=== PATIENT | female | born 1960 | race Caucasian/White ===

== ENCOUNTER → 2020-01-25 | Day surgery (SDC) | payer OTHER ==
[2020-01-20 10:20] LABS: BASOPHILS # (AUTO) 0.1 (0.0-0.1); BASOPHILS % 0.9 % (0.0-1.0); EOSINOPHILS # (AUTO) 0.2 (0.0-0.4); EOSINOPHILS % 3.4 % (0.0-6.0); HEMATOCRIT 39.8 % (34.2-44.1); HEMOGLOBIN 13.4 g/dL (12.0-16.0); LYMPHOCYTES # (AUTO) 2.3 (1.0-3.2); LYMPHOCYTES % 40.9 % (18.0-39.1); MEAN CORPUSCULAR HEMOGLOBIN 30.2 pg (28-32); MEAN CORPUSCULAR HGB CONC 33.7 g/dL (31-35); MEAN CORPUSCULAR VOLUME 89.6 fL (81-99); MONOCYTES # (AUTO) 0.6 (0.2-0.8); MONOCYTES % 9.9 % (4.4-11.3); NEUTROPHILS # (AUTO) 2.5 (2.1-6.9); NEUTROPHILS % 44.7 % (38.7-80.0); PLATELET COUNT 249 x10e3/uL (140-360); RED BLOOD COUNT 4.44 x10e6/uL (3.6-5.1); RED CELL DISTRIBUTION WIDTH 12.6 % (11.7-14.4)
[~2020-01-25] MED LIST: ANASTROZOLE1 MG PO; ASPIRIN325 MG PO; CITRACAL + D M1 EACH PO; FENTANYL CITRATE/PF 100MCG/2 ML INJ ONE; FISH OIL 1,0001 EAC2 PO; HYOSCYAMINE 0.125 MG TAB ONE; LIDOCAINE HCL 2% LOCAL INJ 5 ML SDV VIAL INJ ONE; MEDROL4 MG/DOSE-; METOPROLOL TART25 MG PO; MIDAZOLAM HCL 2 MG/2 ML VIAL ONE; POTASSIUM CHLO20 ME1 PO; PROPOFOL IV EMULSION 10 MG/ML 20 ML VIAL ONE; SIMVASTATIN20 MG PO; SYNTHROID75 MCG PO; VITAMIN D350 MCG PO
[2020-01-25 15:19] LABS: WBC,FECAL (FECAL LACTOFERRIN) NEGATIVE (NEGATIVE)
[2020-01-25 15:20] VITALS: BP 129/69
--- NOTE | 2020-01-25 17:15 | Operative Report ---
DATE OF PROCEDURE: 01/25/2020 SURGEON: Greg Knight MD PROCEDURE: Colonoscopy with polypectomy and biopsies INDICATIONS FOR COLONOSCOPY: Surveillance colonoscopy, personal history of colon polyps, history of intermittent diarrhea. MEDICATIONS: The patient was done under MAC, please see anesthesiologist's note. PROCEDURE IN DETAIL: With the patient in left lateral decubitus position, the flexible fiberoptic Olympus colonoscope was inserted into the rectum with ease and advanced all the way to the cecum. Mucosa overlying the cecum appeared to be within normal limits. The ileocecal valve was intubated. The scope was advanced into the terminal ileum. Biopsies were obtained. The scope was then withdrawn back into the colon. It was then withdrawn slowly, mucosa overlying the ascending, transverse, descending, sigmoid, and rectum revealed some patchy mild inflammatory changes and multiple random biopsies were obtained. Some diverticular disease was noted in the transverse colon. One polyp was hot snared from the descending colon. One polyp was hot snared from the sigmoid colon. The scope was then retroflexed into the distal rectum and small internal hemorrhoids were noted, none of which was actively bleeding. Some hypertrophied anal papillae were also noted. The scope was then straightened out, it was subsequently withdrawn after securing an adequate stool specimen, that was sent for the appropriate stool studies. The patient tolerated the procedure well. IMPRESSION: 1. Colitis, mild, patchy random biopsies obtained. 2. Diverticulosis. 3. Descending colon polyp, hot snared. 4. Sigmoid colon polyp, hot snared. 5. Proctitis, mild. 6. Internal hemorrhoids, none actively bleeding. 7. Hypertrophied anal papillae. PLAN: 1. Follow up histology. 2. Follow up stool studies. 3. Initiate Bentyl 20 mg one p.o. t.i.d. 4. Check IBD panel, CRP, and sedimentation rate. 5. The patient might benefit from a followup colonoscopy in 3 years. Greg Knight MD [facility] [place][id number] cc: Ruben Harrison DO
[2020-01-26 14:34] LABS: C DIFFICILE TOXIN A&B AMP PROB **POSITIVE** (NEGATIVE)
== END | disposition home or self-care (01) ==
LOC: OR 10:06
PROVIDERS: ATTEND Internal Medicine Gastroenterology
DX: Z09 Encounter for follow-up examination after completed treatment for conditions other than malignant neoplasm (principal); K63.5 Polyp of colon; K52.9 Noninfective gastroenteritis and colitis, unspecified; K59.00 Constipation, unspecified; K57.30 Diverticulosis of large intestine without perforation or abscess without bleeding; K62.89 Other specified diseases of anus and rectum; K64.8 Other hemorrhoids; G47.33 Obstructive sleep apnea (adult) (pediatric); E78.5 Hyperlipidemia, unspecified; I10 Essential (primary) hypertension; E03.9 Hypothyroidism, unspecified; B18.8 Other chronic viral hepatitis; Z88.1 Allergy status to other antibiotic agents; Z91.010 Allergy to peanuts; Z01.810 Encounter for preprocedural cardiovascular examination; Z01.812 Encounter for preprocedural laboratory examination; Z11.59 Encounter for screening for other viral diseases; Z79.82 Long term (current) use of aspirin; Z68.25 Body mass index [BMI] 25.0-25.9, adult; Z85.3 Personal history of malignant neoplasm of breast; Z87.891 Personal history of nicotine dependence
CPT/HCPCS: 36415 ×2; 45380; 45385; 83630; 83993; 85025; 85651; 86140; 86256; 86671; 87045; 87177; 87328; 87493; 93005; J2001; J2250; J2704; J3010; U0002

== ENCOUNTER 2024-04-07 20:30 | Inpatient (IN) | payer OTHER ==
[~2024-04-07] VITALS: Ht 172.7 cm; Wt 70.8 kg
[~2024-04-07 20:30] MED LIST changes: -FENTANYL CITRATE/PF 100MCG/2 ML INJ ONE; -HYOSCYAMINE 0.125 MG TAB ONE; -LIDOCAINE HCL 2% LOCAL INJ 5 ML SDV VIAL INJ ONE; -MIDAZOLAM HCL 2 MG/2 ML VIAL ONE; -PROPOFOL IV EMULSION 10 MG/ML 20 ML VIAL ONE
[2024-04-07 20:39] VITALS: TEMP 97.9
[2024-04-07] MEDS ORDERED: KETOROLAC TROMETHAMINE 30 MG/ML VIAL ONE (20:56)
[2024-04-07] MEDS: ONDANSETRON HCL INJ 2MG/ML 2ML 2 MG/ML VIAL IV STA (21:01)
[2024-04-07] MEDS: KETOROLAC TROMETHAMINE 30 MG/ML VIAL IV STA (21:01)
[2024-04-07 21:03] LABS: BASOPHILS # (AUTO) 0.1 (0.0-0.1); BASOPHILS % 0.6 % (0.0-1.0); EOSINOPHILS # (AUTO) 0.2 (0.0-0.4); EOSINOPHILS % 1.5 % (0.0-6.0); HEMATOCRIT 43.1 % (34.2-44.1); HEMOGLOBIN 13.8 g/dL (12.0-16.0); LYMPHOCYTES # (AUTO) 1.1 (1.0-3.2); LYMPHOCYTES % 9.5 % (18.0-39.1); MEAN CORPUSCULAR HEMOGLOBIN 31.6 pg (28-32); MEAN CORPUSCULAR VOLUME 98.6 fL (81-99); MONOCYTES # (AUTO) 0.6 (0.2-0.8); MONOCYTES % 4.9 % (4.4-11.3); NEUTROPHILS # (AUTO) 9.6 (2.1-6.9); NEUTROPHILS % 82.9 % (38.7-80.0); PLATELET COUNT 189 x10e3/uL (140-360); RED BLOOD COUNT 4.37 x10e6/uL (3.6-5.1); WHITE BLOOD COUNT 11.53 x10e3/uL (4.8-10.8)
[2024-04-07 21:26] LABS: ALBUMIN 4.1 g/dL (3.5-5.0); ALBUMIN/GLOBULIN RATIO 1.7 (0.8-2.0); ANION GAP 15.8 mmol/L (8-16); BILIRUBIN,TOTAL 0.7 mg/dL (0.2-1.2); CALCIUM 9.9 mg/dL (8.4-10.2); CREATININE, SERUM 1.45 mg/dL (0.57-1.11); POTASSIUM 4.8 mmol/L (3.5-5.1); TOTAL PROTEIN 6.5 g/dL (6.5-8.1)
[2024-04-07 21:33] LABS: CLARITY,URINE CLEAR (CLEAR); COLOR,URINE YELLOW (YELLOW)
[2024-04-07 21:38] LABS: BILIRUBIN,URINE NEGATIVE (NEGATIVE); GLUCOSE, URINE 1+ (NEGATIVE); KETONES,URINE NEGATIVE (NEGATIVE); LEUKOCYTE ESTERASE ,URINE NEGATIVE (NEGATIVE); NITRITE,URINE NEGATIVE (NEGATIVE); PH,URINE 5.5 (5 - 7); PROTEIN,URINE DIPSTICK NEGATIVE (NEGATIVE); URINE UROBILINOGEN 0.2 mg/dL (0.2 - 1)
[2024-04-07 21:43] LABS: BACTERIA,URINE MANY /HPF; EPITHELIAL CELLS,URINE FEW /LPF; RBC,URINE 0-5 /HPF (0-5)
[2024-04-07] MEDS ORDERED: HYDRALAZINE HCL 20 MG/ML VIAL IV PRN (22:30)
[2024-04-07] MEDS: SODIUM CHLORIDE 0.9% 1000ML 1,000 ML IV SCH (22:46)
[2024-04-07] MEDS: Morphine 4mg INJECTION 4 MG/ML INJ IV ONE (22:47)
[2024-04-07 23:00] VITALS: PULSE 66; RESP 16; O2SAT 97
[2024-04-07 23:15] VITALS: PULSE 59; RESP 16
[2024-04-08] VITALS (12 sets, daily range): BP systolic 132–172; BP diastolic 68–81; PULSE 64–85; RESP 16–20; TEMP 97.5–98.8; O2SAT 93–100
[2024-04-08] MEDS ORDERED: EFFEXOR XR150 MG PO (00:34)
[2024-04-08] MEDS ORDERED: ACETAMINOPHEN 325 MG TAB PO PRN (01:30)
[2024-04-08] MEDS ORDERED: TRAMADOL HCL 50 MG TAB PO PRN (01:30)
[2024-04-08] MEDS ORDERED: GUAIFENESIN/DEXTROMETHORPHAN LIQD 5 ML UDC PO PRN (01:30)
[2024-04-08] MEDS ORDERED: ALBUTEROL SULF 0.083% NEB SOLN 3 ML NEB NEB PRN (01:30)
[2024-04-08] MEDS ORDERED: MAGNESIUM/ALUMINUM/SIMETHICONE 30 ML UDC PO PRN (01:30)
[2024-04-08] MEDS ORDERED: MELATONIN 3 MG TAB PO PRN (01:30)
[2024-04-08] MEDS: Morphine 4mg INJECTION 4 MG/ML INJ IV PRN (04:34)
[2024-04-08 05:46] LABS: BASOPHILS % 0.3 % (0.0-1.0); EOSINOPHILS % 0.3 % (0.0-6.0); HEMATOCRIT 34.4 % (34.2-44.1); HEMOGLOBIN 11.6 g/dL (12.0-16.0); LYMPHOCYTES # (AUTO) 1.4 (1.0-3.2); LYMPHOCYTES % 19.1 % (18.0-39.1); MEAN CORPUSCULAR HEMOGLOBIN 31.6 pg (28-32); MEAN CORPUSCULAR HGB CONC 33.7 g/dL (31-35); MEAN CORPUSCULAR VOLUME 93.7 fL (81-99); MONOCYTES # (AUTO) 0.5 (0.2-0.8); MONOCYTES % 6.8 % (4.4-11.3); NEUTROPHILS # (AUTO) 5.5 (2.1-6.9); NEUTROPHILS % 73.1 % (38.7-80.0); PLATELET COUNT 165 x10e3/uL (140-360); RED BLOOD COUNT 3.67 x10e6/uL (3.6-5.1); RED CELL DISTRIBUTION WIDTH 12.1 % (11.7-14.4); WHITE BLOOD COUNT 7.47 x10e3/uL (4.8-10.8)
[2024-04-08 06:15] LABS: ANION GAP 11.6 mmol/L (8-16); CALCIUM 8.5 mg/dL (8.4-10.2); CREATININE, SERUM 1.36 mg/dL (0.57-1.11); POTASSIUM 4.6 mmol/L (3.5-5.1)
[2024-04-08] MEDS: VENLAFAXINE HCL 75 MG CAPCR PO SCH (09:00)
[2024-04-08] MEDS: ONDANSETRON HCL INJ 2MG/ML 2ML 2 MG/ML VIAL IV PRN (09:51)
[2024-04-08] MEDS ORDERED: LIDOCAINE HCL 2% LOCAL INJ 5 ML SDV VIAL INJ ONE (13:16)
[2024-04-08] MEDS ORDERED: FENTANYL CITRATE/PF 100MCG/2 ML INJ ONE (13:17)
[2024-04-08] MEDS ORDERED: SEVOFLURANE INHAL SOLN 250 ML PEN BTL ONE (13:17)
[2024-04-08] MEDS ORDERED: PROPOFOL IV EMULSION 10 MG/ML 20 ML VIAL ONE (13:17)
[2024-04-08] MEDS ORDERED: ACETAMINOPHEN 1000 MG/100 ML 100 ML IV ONE (13:17)
[2024-04-08] MEDS ORDERED: DEXAMETHASONE SOD PHOS INJ 4 MG/ML SDV ONE (13:50)
[2024-04-08] MEDS ORDERED: FAMOTIDINE 20 MG/2 ML VIAL IV ONE (13:50)
[2024-04-08] MEDS ORDERED: ONDANSETRON HCL INJ 2MG/ML 2ML 2 MG/ML VIAL ONE (13:50)
[2024-04-08] MEDS ORDERED: EPHEDRINE SULFATE INJ 50 MG/ML VIAL ONE (14:03)
[2024-04-08] MEDS ORDERED: ACETAMINOPHEN/CODEINE 300MG - 30MG TAB PO PRN (15:00)
[2024-04-08] MEDS ORDERED: PHENAZOPYRIDINE HCL 100 MG TAB PO PRN (15:00)
[2024-04-08] MEDS: PROMETHAZINE 12.5MG/ NACL 0.9% 12.5 MG/50 ML BAG IV ONE (17:10)
[2024-04-08] MEDS ORDERED: PROMETHAZINE 12.5MG/ NACL 0.9% 12.5 MG/50 ML BAG IV PRN (19:15)
[2024-04-08] MEDS: LEVOTHYROXINE SODIUM 75 MCG TAB PO SCH (20:45)
[2024-04-08] MEDS: SIMVASTATIN 20 MG TAB PO SCH (20:47)
[2024-04-08] MEDS: METOPROLOL TARTRATE 25 MG TAB PO SCH (20:48)
[2024-04-09] VITALS (8 sets, daily range): BP systolic 122–172; BP diastolic 66–81; PULSE 62–79; RESP 16–20; TEMP 98.6–99.3; O2SAT 94–99
[2024-04-09 04:53] LABS: BASOPHILS % 0.2 % (0.0-1.0); HEMATOCRIT 33.9 % (34.2-44.1); HEMOGLOBIN 10.7 g/dL (12.0-16.0); LYMPHOCYTES # (AUTO) 0.6 (1.0-3.2); LYMPHOCYTES % 10.6 % (18.0-39.1); MEAN CORPUSCULAR HEMOGLOBIN 31.8 pg (28-32); MEAN CORPUSCULAR HGB CONC 31.6 g/dL (31-35); MEAN CORPUSCULAR VOLUME 100.6 fL (81-99); MONOCYTES # (AUTO) 0.3 (0.2-0.8); MONOCYTES % 4.9 % (4.4-11.3); NEUTROPHILS # (AUTO) 4.5 (2.1-6.9); NEUTROPHILS % 83.7 % (38.7-80.0); PLATELET COUNT 155 x10e3/uL (140-360); RED BLOOD COUNT 3.37 x10e6/uL (3.6-5.1); RED CELL DISTRIBUTION WIDTH 12.5 % (11.7-14.4); WHITE BLOOD COUNT 5.36 x10e3/uL (4.8-10.8)
[2024-04-09 05:17] LABS: ANION GAP 13.3 mmol/L (8-16); CALCIUM 8.9 mg/dL (8.4-10.2); CREATININE, SERUM 1.43 mg/dL (0.57-1.11); POTASSIUM 4.3 mmol/L (3.5-5.1)
[2024-04-09] MEDS: SOLIFENACIN SUCCINATE 5 MG TAB PO SCH (08:16)
[2024-04-10] VITALS: BP 142/76; PULSE 71; RESP 18; TEMP 98.6; O2SAT 94
[2024-04-10 04:00] VITALS: BP 164/90; PULSE 73; RESP 18; TEMP 98.3; O2SAT 97
[2024-04-10 06:31] VITALS: PULSE 82; RESP 20; O2SAT 96
[2024-04-10] MEDS: DOCUSATE SODIUM 100 MG CAP PO PRN (08:25)
[2024-04-10 08:34] VITALS: BP 155/88; PULSE 72; RESP 20; TEMP 98.1; O2SAT 97
[2024-04-10] MEDS ORDERED: TYLENOL 3 PO (11:01)
[2024-04-10] MEDS ORDERED: CEFTIN PO (11:02)
[2024-04-10] MEDS ORDERED: VESICARE5 MG PO (11:02)
== END 2024-04-10 13:10 | disposition home or self-care (01) | DRG 661 ==
LOC: ER 20:35 → ERHOLD 22:29 → MED/SURG 23:39
PROVIDERS: ADMIT Internal Medicine; ATTEND Internal Medicine
PROC: 0T768DZ Dilation of Right Ureter with Intraluminal Device, Via Natural or Artificial Opening Endoscopic (ICD-10-PCS; 2024-04-08)
PROC: 0UJH7ZZ Inspection of Vagina and Cul-de-sac, Via Natural or Artificial Opening (ICD-10-PCS; 2024-04-08)
PROC: BT1D1ZZ Fluoroscopy of Right Kidney, Ureter and Bladder using Low Osmolar Contrast (ICD-10-PCS; principal; 2024-04-08 13:49)
DX: N13.2 Hydronephrosis with renal and ureteral calculous obstruction (principal); N17.9 Acute kidney failure, unspecified; I10 Essential (primary) hypertension; I25.10 Atherosclerotic heart disease of native coronary artery without angina pectoris; R31.0 Gross hematuria; N23 Unspecified renal colic; J45.909 Unspecified asthma, uncomplicated; E78.00 Pure hypercholesterolemia, unspecified; Z79.82 Long term (current) use of aspirin; Z85.3 Personal history of malignant neoplasm of breast; Z90.13 Acquired absence of bilateral breasts and nipples; Z95.5 Presence of coronary angioplasty implant and graft; Z88.1 Allergy status to other antibiotic agents; Z91.010 Allergy to peanuts; Z87.891 Personal history of nicotine dependence; N36.41 Hypermobility of urethra; N81.10 Cystocele, unspecified; N81.6 Rectocele; N95.2 Postmenopausal atrophic vaginitis
CPT/HCPCS: 36415; 74176; 74420; 80048; 80053; 81001; 83690; 85025; 87086; 94799; 99284; C1758; C1769; C2617; J0696; J1100; J1885; J2003; J2270; J2405; J2550; J7030

== ENCOUNTER 2024-05-01 20:49 | Inpatient (IN) | payer OTHER ==
[~2024-05-01] VITALS: Ht 172.7 cm; Wt 70.8 kg
[~2024-05-01 20:49] MED LIST changes: +CEFTIN PO; +EFFEXOR XR150 MG PO; +TYLENOL 3 PO; +VENLAFAXINE HCL75 MG PO; +VESICARE5 MG PO
[2024-05-01 21:58] LABS: BASOPHILS % 0.5 % (0.0-1.0); EOSINOPHILS # (AUTO) 0.3 (0.0-0.4); EOSINOPHILS % 5.1 % (0.0-6.0); HEMATOCRIT 41.4 % (34.2-44.1); HEMOGLOBIN 13.8 g/dL (12.0-16.0); LYMPHOCYTES # (AUTO) 1.8 (1.0-3.2); LYMPHOCYTES % 27.5 % (18.0-39.1); MEAN CORPUSCULAR HEMOGLOBIN 31.6 pg (28-32); MEAN CORPUSCULAR HGB CONC 33.3 g/dL (31-35); MEAN CORPUSCULAR VOLUME 94.7 fL (81-99); MONOCYTES # (AUTO) 0.4 (0.2-0.8); NEUTROPHILS # (AUTO) 3.9 (2.1-6.9); NEUTROPHILS % 60.6 % (38.7-80.0); PLATELET COUNT 210 x10e3/uL (140-360); RED BLOOD COUNT 4.37 x10e6/uL (3.6-5.1); RED CELL DISTRIBUTION WIDTH 11.9 % (11.7-14.4); WHITE BLOOD COUNT 6.47 x10e3/uL (4.8-10.8)
[2024-05-01 22:14] LABS: COLOR,URINE BROWN (YELLOW)
[2024-05-01 22:15] LABS: BILIRUBIN,URINE 1+ (NEGATIVE); CLARITY,URINE CLOUDY (CLEAR); GLUCOSE, URINE NEGATIVE (NEGATIVE)
[2024-05-01 22:16] LABS: KETONES,URINE NEGATIVE (NEGATIVE); PH,URINE 6 (5 - 7); PROTEIN,URINE DIPSTICK 3+ (NEGATIVE)
[2024-05-01 22:16] LABS: ALBUMIN/GLOBULIN RATIO 1.4 (0.8-2.0); BILIRUBIN,TOTAL 0.8 mg/dL (0.2-1.2); CALCIUM 10.1 mg/dL (8.4-10.2); CREATININE, SERUM 1.52 mg/dL (0.57-1.11); TOTAL PROTEIN 6.8 g/dL (6.5-8.1)
[2024-05-01 22:17] LABS: LEUKOCYTE ESTERASE ,URINE TRACE (NEGATIVE); NITRITE,URINE NEGATIVE (NEGATIVE); RBC,URINE >50 /HPF (0-5); URINE UROBILINOGEN 0.2 mg/dL (0.2 - 1); WBC,URINE (MAN) 21-50 /HPF (0-5)
[2024-05-01 22:18] LABS: AMORPHOUS SEDIMENT,URINE MANY (FEW); BACTERIA,URINE MANY /HPF; EPITHELIAL CELLS,URINE FEW /LPF; MUCUS,URINE MANY (RARE)
[2024-05-02] VITALS (7 sets, daily range): BP systolic 129–177; BP diastolic 68–82; PULSE 71–97; RESP 16–20; TEMP 97.7–98; O2SAT 94–100
[2024-05-02] MEDS: SODIUM CHLORIDE 0.9% 1000ML 1,000 ML IV SCH (00:56)
[2024-05-02] MEDS: Morphine 2mg Syringe 2 MG/ML SYR IV PRN (01:02)
[2024-05-02] MEDS: ONDANSETRON HCL INJ 2MG/ML 2ML 2 MG/ML VIAL IV PRN (01:02)
[2024-05-02 06:34] LABS: BASOPHILS % 0.7 % (0.0-1.0); EOSINOPHILS # (AUTO) 0.3 (0.0-0.4); EOSINOPHILS % 5.2 % (0.0-6.0); HEMATOCRIT 37.5 % (34.2-44.1); HEMOGLOBIN 11.7 g/dL (12.0-16.0); LYMPHOCYTES % 36.6 % (18.0-39.1); MEAN CORPUSCULAR HEMOGLOBIN 31.6 pg (28-32); MEAN CORPUSCULAR HGB CONC 31.2 g/dL (31-35); MEAN CORPUSCULAR VOLUME 101.4 fL (81-99); MONOCYTES # (AUTO) 0.5 (0.2-0.8); MONOCYTES % 9.7 % (4.4-11.3); NEUTROPHILS # (AUTO) 2.6 (2.1-6.9); NEUTROPHILS % 47.4 % (38.7-80.0); PLATELET COUNT 173 x10e3/uL (140-360); WHITE BLOOD COUNT 5.57 x10e3/uL (4.8-10.8)
[2024-05-02 06:58] LABS: ALBUMIN 3.5 g/dL (3.5-5.0); ALBUMIN/GLOBULIN RATIO 1.6 (0.8-2.0); ANION GAP 12.8 mmol/L (8-16); BILIRUBIN,TOTAL 0.5 mg/dL (0.2-1.2); CREATININE, SERUM 1.1 mg/dL (0.57-1.11); POTASSIUM 3.8 mmol/L (3.5-5.1); TOTAL PROTEIN 5.7 g/dL (6.5-8.1)
[2024-05-02] MEDS ORDERED: CEFTRIAXONE 1 GM VIAL IM STA (07:38)
[2024-05-02] MEDS ORDERED: GENTAMICIN 120MG/NS 100ML 100 ML IV STA (07:45)
[2024-05-02] MEDS ORDERED: GENTAMICIN 120MG/NS 100ML 100 ML ONE (08:09)
[2024-05-02] MEDS ORDERED: CEFTRIAXONE 1 GM VIAL ONE (08:09)
[2024-05-02] MEDS ORDERED: PROPOFOL IV EMULSION 10 MG/ML 20 ML VIAL ONE (08:21)
[2024-05-02] MEDS ORDERED: DEXAMETHASONE SOD PHOS INJ 4 MG/ML SDV ONE (08:22)
[2024-05-02] MEDS ORDERED: LIDOCAINE HCL 2% LOCAL INJ 5 ML SDV VIAL INJ ONE (08:22)
[2024-05-02] MEDS ORDERED: ONDANSETRON HCL INJ 2MG/ML 2ML 2 MG/ML VIAL ONE (08:22)
[2024-05-02] MEDS ORDERED: FENTANYL CITRATE/PF 100MCG/2 ML INJ ONE (08:23)
[2024-05-02] MEDS ORDERED: MIDAZOLAM HCL 2 MG/2 ML VIAL ONE (08:23)
[2024-05-02] MEDS ORDERED: PHENYLEPHRINE HCL 1% 10 MG/ML VIAL ONE ×2 (08:24→08:48)
[2024-05-02] MEDS ORDERED: ACETAMINOPHEN 1000 MG/100 ML 100 ML IV ONE (08:45)
[2024-05-02] MEDS ORDERED: METOCLOPRAMIDE HCL 10 MG/2ML VIAL ONE (08:45)
[2024-05-02] MEDS ORDERED: FAMOTIDINE 20 MG/2 ML VIAL IV ONE (08:45)
[2024-05-02] MEDS ORDERED: EPHEDRINE SULFATE INJ 50 MG/ML VIAL ONE (08:56)
[2024-05-02] MEDS ORDERED: HEPARIN SOD/DEXTROSE 5% 25000 UNIT/250 ML BAG IV SCH (12:00)
[2024-05-02] MEDS ORDERED: SIMETHICONE 80 MG CHEW PO PRN (12:30)
[2024-05-02] MEDS ORDERED: DOCUSATE SODIUM 100 MG CAP PO PRN (12:30)
[2024-05-02] MEDS ORDERED: LIDOCAINE 4% PATCH TP PRN (12:30)
[2024-05-02] MEDS ORDERED: HYDRALAZINE HCL 20 MG/ML VIAL IV PRN (12:30)
[2024-05-02] MEDS ORDERED: DIPHENHYDRAMINE HCL 25 MG CAP PO PRN (12:30)
[2024-05-02] MEDS ORDERED: ALBUTEROL/IPRATROPIUM 3 ML NEB NEB PRN (12:30)
[2024-05-02] MEDS ORDERED: ACETAMINOPHEN 325 MG TAB PO PRN (12:30)
[2024-05-02] MEDS ORDERED: DEXTROSE 50% SYRINGE 50 ML IV PRN (12:30)
[2024-05-02] MEDS ORDERED: MELATONIN 5 MG TABLET PO PRN (12:30)
[2024-05-02] MEDS ORDERED: BENZONATATE 100 MG CAP PO PRN (12:30)
[2024-05-02] MEDS ORDERED: POTASSIUM CHLORIDE 20 MEQ TAB CR PO PRN (12:30)
[2024-05-02] MEDS: ACETAMINOPHEN/CODEINE 300MG - 30MG TAB PO PRN (14:47)
[2024-05-02] MEDS: NIFEDIPINE CR 30 MG TAB PO SCH (14:48)
[2024-05-02] MEDS: PHENAZOPYRIDINE HCL 100 MG TAB PO PRN (14:50)
[2024-05-02] MEDS: VENLAFAXINE HCL 75 MG TAB PO SCH (21:58)
[2024-05-02] MEDS: METOPROLOL TARTRATE 50 MG TAB PO SCH (21:59)
[2024-05-02] MEDS: LEVOTHYROXINE SODIUM 75 MCG TAB PO SCH (21:59)
[2024-05-02] MEDS: SIMVASTATIN 20 MG TAB PO SCH (22:03)
[2024-05-03] VITALS (10 sets, daily range): BP systolic 121–146; BP diastolic 64–70; PULSE 71–87; RESP 17–20; TEMP 97.6–98.1; O2SAT 95–100
[2024-05-03 06:29] LABS: BASOPHILS % 0.2 % (0.0-1.0); HEMATOCRIT 36.8 % (34.2-44.1); HEMOGLOBIN 11.4 g/dL (12.0-16.0); LYMPHOCYTES # (AUTO) 1.1 (1.0-3.2); LYMPHOCYTES % 11.8 % (18.0-39.1); MONOCYTES # (AUTO) 0.6 (0.2-0.8); MONOCYTES % 6.1 % (4.4-11.3); NEUTROPHILS # (AUTO) 7.8 (2.1-6.9); NEUTROPHILS % 81.5 % (38.7-80.0); PLATELET COUNT 195 x10e3/uL (140-360); RED BLOOD COUNT 3.68 x10e6/uL (3.6-5.1); RED CELL DISTRIBUTION WIDTH 11.9 % (11.7-14.4); WHITE BLOOD COUNT 9.54 x10e3/uL (4.8-10.8)
[2024-05-03 06:55] LABS: ANION GAP 11.8 mmol/L (8-16); CALCIUM 9.5 mg/dL (8.4-10.2); CREATININE, SERUM 1.06 mg/dL (0.57-1.11); POTASSIUM 4.8 mmol/L (3.5-5.1)
[2024-05-03] MEDS: PANTOPRAZOLE SOD 40 MG TABEC PO SCH (09:16)
[2024-05-04] VITALS: BP 147/77; PULSE 69; RESP 20; TEMP 98; O2SAT 98
[2024-05-04 04:00] VITALS: BP 151/73; PULSE 70; RESP 20; TEMP 98; O2SAT 99
[2024-05-04 07:50] VITALS: BP 123/76; PULSE 68; RESP 19; TEMP 97.7; O2SAT 99
[2024-05-04 08:03] VITALS: BP 123/76; PULSE 68; RESP 19; TEMP 97.7; O2SAT 99
[2024-05-04 11:12] VITALS: BP 137/54; PULSE 77; RESP 16; TEMP 97.7; O2SAT 100
[2024-05-04] MEDS ORDERED: CEFUROXIME500 MG PO (14:11)
[2024-05-04] MEDS ORDERED: TRAMADOL HCL100 MG PO (14:11)
[2024-05-04 15:49] VITALS: BP 145/78; PULSE 73; RESP 16; TEMP 98.2; O2SAT 97
== END 2024-05-04 16:08 | disposition home or self-care (01) | DRG 699 ==
LOC: ER 20:53 → ERHOLD 23:51 → PACU V 05-02 08:51 → MED/SURG2 05-02 10:13 → OBSVTOIN 05-03 10:14
PROVIDERS: ADMIT Internal Medicine; ATTEND Internal Medicine
PROC: 0TC08ZZ Extirpation of Matter from Right Kidney, Via Natural or Artificial Opening Endoscopic (ICD-10-PCS; 2024-05-02)
PROC: 0UJH7ZZ Inspection of Vagina and Cul-de-sac, Via Natural or Artificial Opening (ICD-10-PCS; 2024-05-02)
PROC: BT1D1ZZ Fluoroscopy of Right Kidney, Ureter and Bladder using Low Osmolar Contrast (ICD-10-PCS; 2024-05-02)
PROC: 0TP98DZ Removal of Intraluminal Device from Ureter, Via Natural or Artificial Opening Endoscopic (ICD-10-PCS; principal; 2024-05-02 08:34)
DX: T83.84XA Pain due to genitourinary prosthetic devices, implants and grafts, initial encounter (principal); N17.9 Acute kidney failure, unspecified; N39.0 Urinary tract infection, site not specified; N20.0 Calculus of kidney; I10 Essential (primary) hypertension; I25.10 Atherosclerotic heart disease of native coronary artery without angina pectoris; E78.5 Hyperlipidemia, unspecified; E03.9 Hypothyroidism, unspecified; N23 Unspecified renal colic; R31.29 Other microscopic hematuria; N81.10 Cystocele, unspecified; N81.6 Rectocele; N95.2 Postmenopausal atrophic vaginitis; F41.9 Anxiety disorder, unspecified; F32.A Depression, unspecified; Z79.82 Long term (current) use of aspirin; Z79.890 Hormone replacement therapy; Z96.0 Presence of urogenital implants; Z95.5 Presence of coronary angioplasty implant and graft; Z85.3 Personal history of malignant neoplasm of breast; Z90.13 Acquired absence of bilateral breasts and nipples; Z86.16 Personal history of COVID-19; Z91.010 Allergy to peanuts; Z88.1 Allergy status to other antibiotic agents; Z87.891 Personal history of nicotine dependence; Z82.49 Family history of ischemic heart disease and other diseases of the circulatory system
CPT/HCPCS: 36415; 74176; 74420; 80048; 80053; 81001; 85025; 87086; 88300; 88307; 94799; 99284; C1758; C1766; C1769; G0378; J0696; J1100; J1580; J2003; J2250; J2270; J2371; J2405; J2765; J7030